=== PATIENT | male | born 1950 | race Caucasian/White ===

== ENCOUNTER 2021-09-23 17:37 | Emergency (ER) | payer MEDICARE, BC ==
[~2021-09-23] VITALS: Ht 175.3 cm; Wt 63.5 kg
[2021-09-23] MEDS ORDERED: FLUORESCEIN SODIUM 1 MG STRIP ONE ×2 (17:52→17:59)
[2021-09-23] MEDS ORDERED: TETRACAINE HCL 0.5% OPHT DROP 2 ML BOTTLE ONE (17:52)
[2021-09-23] MEDS ORDERED: CIPR5DRO RIGHTEYE (18:09)
[2021-09-23] MEDS ORDERED: SODIUM/POT/SOD CHL OPHT WASH 120 ML BOTTLE ONE (18:10)
--- NOTE | 2021-09-23 18:11 | NUR ---
Patient discharged to home in stable condition. Written and verbal after care instructions given. Patient verbalizes understanding of instructions. Stressed follow up or return to ER for worsening s/s.
== END 2021-09-23 18:12 | disposition home or self-care (01) ==
LOC: ER 17:39
DX: S05.01XA Injury of conjunctiva and corneal abrasion without foreign body, right eye, initial encounter (principal); X58.XXXA Exposure to other specified factors, initial encounter; Y92.89 Other specified places as the place of occurrence of the external cause
CPT/HCPCS: A4663